=== PATIENT | male | born 1955 | race African-American/Black ===

== ENCOUNTER 2018-01-23 08:34 | Emergency (ER) | payer OTHER ==
[~2018-01-23] VITALS: Ht 167.6 cm; Wt 50.0 kg
[~2018-01-23 08:34] MED LIST: ALD50 PO; FURO-151 PO; Folic Acid PO; HYDR-3735 PO; HYDR-519 PO; MULT-1146 PO; Multivitamins,Ther W-Minerals PO; TRAM50TA94 PO; Thiamine Hcl PO; [UNRECOGNIZED DRUG - CODE] TP
[2018-01-23] MEDS ORDERED: SODIUM CHLORIDE 0.9% 1,000 ML IV ONE ×3 (09:54→21:56)
[2018-01-23] MEDS ORDERED: ASPIRIN 81MG TABLET PO ONE (10:00)
[2018-01-23 11:48] LABS: HEMATOCRIT. 30.8 % (42.0-52.0); MEAN CORPUSCULAR HEMOGLOBIN 26.7 pg (28.0-32.0); MEAN CORPUSCULAR VOLUME 82.6 fL (80.0-94.0); PLATELET 131 x1000/uL (130-400); RED BLOOD CELL COUNT 3.73 mill/uL (4.7-6.1); RED CELL DISTRIBUTION WIDTH 17.9 % (11.6-14.6)
[2018-01-23 11:53] LABS: CHLORIDE 108 mEq/L (98-107)
[2018-01-23 12:06] LABS: INR 1.5; PARTIAL THROMBOPLASTIN TIME 32.3 sec (23.4-31.0); PROTHROMBIN TIME 14.8 sec (9.1-11.1)
[2018-01-23] MEDS ORDERED: LEVETIRACETAM 1000MG/100ML 100 ML IV ONE (12:30)
[2018-01-23 12:48] LABS: D-DIMER > 35.20 mg/L FEU (<0.50)
[2018-01-23 12:49] LABS: PLATELET ESTIMATE NORMAL
[2018-01-23] MEDS ORDERED: PROPOFOL 10MG/ML 100ML 100 ML IV SCH ×2 (13:45→14:15)
[2018-01-23] MEDS ORDERED: LACTULOSE 20G/30ML UDC NG ONE (13:45)
[2018-01-23] MEDS ORDERED: IPRATROPIUM/ALBUTEROL 0.5-3(2.5)MG/3ML NEB INH PRN (13:45)
[2018-01-23] MEDS ORDERED: DIPHENHYDRAMINE 50MG/ML VIAL IV PRN (13:45)
[2018-01-23] MEDS ORDERED: MULTIVITAMINS,THER W-MINERALS TABLET PO SCH ×2 (13:45→16:15)
[2018-01-23] MEDS ORDERED: ACETAMINOPHEN 325MG TABLET PO PRN (13:45)
[2018-01-23] MEDS ORDERED: FOLIC ACID 1MG TABLET PO SCH ×2 (13:45→16:15)
[2018-01-23] MEDS ORDERED: HYDROCODONE/ACETAMINOPHEN 5/325MG TABLET PO PRN (13:45)
[2018-01-23] MEDS ORDERED: PANTOPRAZOLE SODIUM 40 MG/VIAL IV ONE ×2 (13:45→14:59)
[2018-01-23] MEDS ORDERED: ACETAMINOPHEN 650MG SUPP PR PRN (13:45)
[2018-01-23] MEDS ORDERED: ONDANSETRON HCL 4MG/2ML INJ IV PRN (13:45)
[2018-01-23] MEDS ORDERED: THIAMINE HCL 100MG TABLET PO SCH (13:45)
[2018-01-23] MEDS ORDERED: SPIRONOLACTONE 50MG TABLET PO SCH (13:45)
[2018-01-23] MEDS ORDERED: ACETAMINOPHEN 650MG/20.3ML UDC GT PRN (13:45)
[2018-01-23] MEDS ORDERED: PANTOPRAZOLE 80 MG in SODIUM CHLORIDE 0.9% 100 ML IV SCH ×2 (13:45→14:15)
[2018-01-23] MEDS ORDERED: DOPAMINE 400MG PREMIX 250 ML IV ONE ×5 (14:26→19:45)
[2018-01-23] MEDS ORDERED: NOREPINEPHRINE 4 MG in DEXT 5% WATER 246 ML IV ONE ×3 (14:30→16:45)
[2018-01-23 14:47] LABS: BG BASE EXCESS -23.3 mmol/L (-2.0-2.0); BG CARBOXYHEMOGLOBIN 0.5 % (0.5-1.5); BG DEOXYHEMOGLOBIN 0.2 % (0.0-5.0); BG HCO3 ACT 6.3 mmol/L (22.0-26.0); BG METHEMOGLOBIN 0.8 % (0.0-1.5); BG OXYGEN SATURATION 99.8 % (92.0-98.5); BG OXYHEMOGLOBIN 98.5 % (94.0-97.0); BG PCO2 26.8 mmHg (35.0-45.0); BG PH 6.991 (7.350-7.450); BG PO2 545.2 mmHg (75.0-100.0); BG SAMPLE SITE RIGHT BRACHIAL; BG TIDAL VOLUME(mL) 600 mL; BG TOTAL HEMOGLOBIN 7.6 g/dL (12.0-18.0); BG VENT MODE VENT - A/C; BG VENT RATE 18 set
[2018-01-23] MEDS ORDERED: CALCIUM CHLORIDE 1GM/10ML SYR IV ONE (15:00)
[2018-01-23] MEDS ORDERED: SODIUM BICARBONATE 150 MEQ in DEXTROSE 5% WATER 1,000 ML IV SCH (15:00)
[2018-01-23] MEDS ORDERED: SODIUM BICARBONATE 8.4% 1 MEQ/ML 50ML SYR IV ONE ×2 (15:00→17:01)
[2018-01-23] MEDS ORDERED: DEXT IV SCH (15:30)
[2018-01-23] MEDS ORDERED: PHENYLEPHRINE 40 MG in DEXT 5% WATER 246 ML IV PRN (15:30)
[2018-01-23] MEDS ORDERED: IPRATROPIUM/ALBUTEROL 0.5-3(2.5)MG/3ML NEB HHN PRN (15:30)
[2018-01-23] MEDS ORDERED: PROPOFOL 10MG/ML 100ML 100 ML IV PRN (15:30)
[2018-01-23] MEDS ORDERED: NACL IV SCH (15:30)
[2018-01-23] MEDS ORDERED: METRONIDAZOLE 500 MG PREMIX 100 ML IV SCH (15:30)
[2018-01-23] MEDS ORDERED: SODIUM BICARBONATE IV SCH (15:30)
[2018-01-23] MEDS ORDERED: AZTREONAM 1 G in DEXTROSE 5% WATER 50 ML IV SCH (15:30)
[2018-01-23] MEDS ORDERED: LIDOCAINE HCL 1% 20ML VIAL (Pyxis) INJ ONE (15:41)
[2018-01-23] MEDS ORDERED: SODIUM BICARBONATE 4% (2.4MEQ) 5ML VIAL IV ONE (15:41)
[2018-01-23 15:58] LABS: CLARITY URINE CLEAR (CLEAR); COLOR URINE YELLOW (YELLOW); KETONES URINE NEGATIVE (NEGATIVE); LEUKOCYTE ESTERASE URINE NEGATIVE (NEGATIVE); NITRITE URINE NEGATIVE (NEGATIVE); OCCULT BLOOD URINE 3+ (NEGATIVE); PH URINE 5.5 (4.5-8.0); PROTEIN URINE 1+ (NEGATIVE); SPECIFIC GRAVITY URINE 1.014 (1.005-1.030); UROBILINOGEN URINE 0.2 E.U./dL (0.2-1.0)
[2018-01-23] MEDS ORDERED: IPRATROPIUM/ALBUTEROL 0.5-3(2.5)MG/3ML NEB HHN SCH (16:00)
[2018-01-23 16:02] LABS: AMMONIA 167 uMol/L (<32)
[2018-01-23 16:29] LABS: VITAMIN B12 SERUM 812 pg/mL (211-911)
[2018-01-23 16:48] LABS: *BARBITURATES SCREEN URINE NEGATIVE (NEGATIVE)
[2018-01-23 16:49] LABS: *AMPHETAMINES SCREEN URINE NEGATIVE (NEGATIVE); *BENZODIAZEPINES SCREEN URINE NEGATIVE (NEGATIVE); *COCAINE SCREEN URINE NEGATIVE (NEGATIVE)
[2018-01-23 16:50] LABS: METHADONE URINE SCREEN NEGATIVE (NEGATIVE)
[2018-01-23 16:51] LABS: OPIATES URINE SCREEN NEGATIVE (NEGATIVE)
[2018-01-23 16:52] LABS: CANNABINOID URINE SCREEN NEGATIVE (NEGATIVE); PHENCYCLIDINE URINE SCREEN NEGATIVE (NEGATIVE)
[2018-01-23 16:54] LABS: FOLIC ACID (FOLATE) SERUM > 20.00 ng/mL (>5.38)
[2018-01-23 16:56] LABS: CREATINE KINASE MB FRACTION 15.9 ng/mL (0.5-3.6)
[2018-01-23] MEDS ORDERED: LEVETIRACETAM 500MG PREMIX 100 ML IV SCH (17:00)
[2018-01-23 17:07] LABS: T4 FREE 1.11 ng/dL (0.76-1.46)
[2018-01-23] MEDS ORDERED: ATROPINE SULFATE 1MG/10ML SYR IV ONE ×2 (17:15→18:00)
[2018-01-23 17:59] LABS: MEAN CORPUSCULAR HEMOGLOBIN 27.5 pg (28.0-32.0); MEAN CORPUSCULAR VOLUME 91.4 fL (80.0-94.0); MEAN PLATELET VOLUME 7.9 fl (7.4-10.4); PLATELET 71 x1000/uL (130-400); RED BLOOD CELL COUNT 1.65 mill/uL (4.7-6.1); RED CELL DISTRIBUTION WIDTH 18.6 % (11.6-14.6)
[2018-01-23] MEDS ORDERED: SODIUM BICARBONATE 8.4% 1 MEQ/ML 50ML SYR IV NR (18:00)
[2018-01-23 18:04] LABS: HEMOGLOBIN. 4.5 g/dL (14.0-18.0)
[2018-01-23 18:09] LABS: BG HCO3 ACT 22.2 mmol/L (22.0-26.0); BG PCO2 55.3 mmHg (35.0-45.0); BG PH 7.221 (7.350-7.450); BG PO2 95.3 mmHg (75.0-100.0); BG SAMPLE SITE RIGHT BRACHIAL; BG TIDAL VOLUME(mL) 450 mL; BG TOTAL HEMOGLOBIN < 4.5 g/dL (12.0-18.0); BG VENT MODE VENT - A/C; BG VENT RATE 26 set
[2018-01-23 18:46] LABS: PLATELET ESTIMATE DECREASED
[2018-01-23] MEDS ORDERED: PANTOPRAZOLE SODIUM 40 MG/VIAL IV SCH (19:15)
[2018-01-23] MEDS ORDERED: OCTREOTIDE 1,000 MCG in SODIUM CHLORIDE 0.9% 100 ML IV SCH (19:15)
[2018-01-23] MEDS ORDERED: OCTREOTIDE ACETATE 50 MCG/ML 1ML IV ONE (19:15)
[2018-01-23] MEDS ORDERED: NOREPINEPHRINE 16 MG in DEXT 5% WATER 234 ML IV PRN ×2 (19:30→19:45)
[2018-01-23] MEDS ORDERED: LACTULOSE 20G/30ML UDC PO SCH (22:00)
[2018-01-23 22:22] LABS: CREATINE KINASE MB FRACTION 51.8 ng/mL (0.5-3.6)
[2018-01-23 22:57] VITALS: BP 52/21
== END 2018-01-23 23:10 | disposition expired ==
LOC: ER 08:42 → EDBEDREQ 12:58 → EDBEDREQTM 12:58 → EDBEDREQSVC 13:35 → EDBEDREQ 13:35 → ER 23:10 → CANBEDREQ 23:17
DX: J96.90 Respiratory failure, unspecified, unspecified whether with hypoxia or hypercapnia (principal); R07.89 Other chest pain; K92.2 Gastrointestinal hemorrhage, unspecified; R56.9 Unspecified convulsions; K74.60 Unspecified cirrhosis of liver; D64.9 Anemia, unspecified; F32.9 Major depressive disorder, single episode, unspecified; Z98.890 Other specified postprocedural states; Z88.0 Allergy status to penicillin; Z79.899 Other long term (current) drug therapy
CPT/HCPCS: 31500; 36415; 36569; 36600; 71045; 76937; 78580; 80048; 80053; 80305; 81003; 82140; 82375; 82550; 82553; 82607; 82746; 82805; 83036; 83605; 83690; 83880; 84439; 84481; 84484; 85025; 85379; 85610; 85730; 86850; 86900; 86901; 86920; 87040; 87086; 87804; 93005; 93970; 94002; 96365; 96366; 96368; 96375; 96376; 99291; A9540; C1725; C9113; G0482; J1265; J1953; J2354; J2704; J3490; J7030; J7070; P9016; J7050; J7060